=== PATIENT | female | born 1975 | race Caucasian/White ===

== ENCOUNTER 2021-07-09 16:10 | Outpatient (RCR) | payer BC, SELFPAY | END 2021-10-07 23:59 | disposition home or self-care (01) | LOC: CHSPT 16:10 | DX: M54.2 Cervicalgia (principal); M54.50 Low back pain, unspecified | CPT/HCPCS: 99199 ==

== ENCOUNTER 2021-09-29 14:07 | Outpatient (CLI) | payer BC, SELFPAY ==
[2021-09-29 15:25] LABS: SARS-CoV-2 RNA PCR Positive (Negative)
== END 2021-09-29 14:08 | disposition home or self-care (01) ==
LOC: CHSLAB 14:10
PROVIDERS: PCP Physician Assistant; Visit Provider Physician Assistant
DX: U07.1 COVID-19 (principal); B34.9 Viral infection, unspecified
CPT/HCPCS: C9803; U0003; U0005

== ENCOUNTER 2021-12-31 13:45 | Outpatient (CLI) | payer BC, SELFPAY ==
--- NOTE | ~2021-12-31 | XR_ITS ---
EXAMINATION: XR tibia fibula RT 2V DATE: 12/31/2021 14:13 INDICATION: Right knee pain. TECHNIQUE: 2 views of right tibia and fibula on 4 radiographs were obtained. COMPARISON: None. FINDINGS: There is a patellofemoral compartment arthroplasty in near-anatomic alignment. No fracture. There is mild osteoarthritis of medial and lateral compartments of the knee. There is mild osteoarth ritis of talonavicular joint. IMPRESSION: 1. Patellofemoral compartment arthroplasty in near-anatomic alignment. 2. Mild polyarticular osteoarthritis. Reviewed, dictated and finalized at location A.
--- NOTE | ~2021-12-31 | XR_ITS ---
EXAMINATION: XR knee RT 3V DATE: 12/31/2021 14:12 INDICATION: Right knee pain. TECHNIQUE: 3 views of right knee were obtained. COMPARISON: None. FINDINGS: There is a patellofemoral compartment arthroplasty in near-anatomic alignment. No periprost hetic lucency to suggest loosening or infection. No fracture. There is mild osteoarthritis of medial and lateral compartments characterized by marginal osteophytes. No joint space narrowing. There is a small knee joint effusion. IMPRESSION: 1. Patellofemoral compartment arthroplasty in near-anatomic alignment. 2. Mild right knee osteoarthritis. 3. Small right knee joint effusion. Reviewed, dictated and finalized at location A.
== END 2021-12-31 13:46 | disposition home or self-care (01) ==
LOC: CHSIMG 13:48
PROVIDERS: PCP Physician Assistant; Visit Provider Physician Assistant
DX: M25.561 Pain in right knee (principal)
CPT/HCPCS: 73562; 73590

== ENCOUNTER 2022-12-30 06:04 | Day surgery (SDC) | payer OTHER, SELFPAY ==
[2022-10-14 09:39] VITALS: BMI 31.6
[2022-12-15 08:45] VITALS: BMI 32.5
[2022-12-30] VITALS (9 sets, daily range): BP systolic 128–157; BP diastolic 92–103; PULSE 79–100; RESP 14–20; TEMP 36.3–36.5; O2SAT 93–100
--- NOTE | 2022-12-30 06:35 | P.PNAN_ITS ---
Anes - Initial Pre Proc Eval Procedure: Operation Date: 12/30/22 07:30 Proposed Procedures p Bilateral Breast Reduction Mammoplasty - Norbert Herzog MD Date/Time: 12/30/22 06:35 Surgeon: Norbert Herzog MD Pre Op Diagnosis: Macromastia Patient Data Age: 47 Gender: F Height: 1.78 m Weight: 103 kg Allergies Allergy/AdvReac Type Severity Reaction Status Date / Time ibuprofen Allergy Muscle Verified 12/30/22 06:20 Spasms iron Allergy Hives Verified 12/30/22 06:20 Penicillins Allergy Hives Verified 12/30/22 06:20 shellfish derived Allergy Anaphylaxis Verified 12/30/22 06:20 Home Medications Medication Instructions Recorded Confirmed Type alprazolam 0.25 mg tablet 0.25 mg PO HS 12/15/22 12/30/22 History bupropion HCl 150 mg tablet,12 hr 150 mg PO DAILY 12/15/22 12/30/22 History sustained-release estradiol 0.05 mg/24 hr semiweekly 1 patch topical DIRECTED 12/15/22 12/30/22 History transdermal patch phenazopyridine 200 mg tablet 200 mg PO DAILY 12/15/22 12/30/22 History Patient hx anesthesia problems: none Family hx anesthesia problems: none Results Review: All pre-operative results and documents have been reviewed as part of the pre- operative evaluation. [facility], [facility] Past Medical History Medical History (Updated 12/30/22 @ 06:44 by Hipolito Osuna DO) Anxiety Asthma Social History Social History Tobacco type: e-cigarettes/vaping Second hand tobacco smoke exposure: No Alcohol intake: current Alcohol use details: socially Substance use: never Substance use type: does not use Living arrangements: with family Spiritual care concerns: No Anes - Eval Final PreProcedure Day of Procedure 12/30/22 06:35 Patient weight: obese Heart: regular rate and rhythm Lungs: clear to auscultation Airway: Mallampati scale class II Neurological: alert and oriented Last oral intake: >/= 8 hours ASA classification: II Emergent: no Anesthetic plan: proceed Anesthesia type and monitoring: general LMA and standard monitoring Results Review: All pre-operative results and documents have been reviewed as part of the pre- operative evaluation. Informed Consent: The patient's anesthetic plan and its attendant risks and benefits were discussed with the patient/family/POA. Questions were solicited and answers provided to the satisfaction of the patient/family/POA.
--- NOTE | 2022-12-30 06:42 | P.OP_ITS ---
Procedure Note - Detailed Date of Procedure 12/30/22 Pre-op Diagnosis Macromastia Post-op Diagnosis Same Procedure Performed Bilateral reduction mammaplasty Surgeon Norbert Herzog MD Anesthesia General Findings Inverted T Superior Medial Pedicle Tissue removed: Right - 950 grams Left - 886 grams Lipoaspiate 200 cc Description of Procedure She is here today for bilateral breast reduction. Previously and again today the risks, benefits, alternatives were discussed in extensive detail. I wanted her to be very realistic about the risks involved as well as expectations. We discussed aftercare and what to monitor for. She understands we can never guar antee final breast size and there will always be asymmetry. I was very upfront and honest about the risks of sensation change and even nipple loss (). Made sure answered all of her questions to her satisfaction today and consent was obtained. She was marked in the preoperative holding area with their verification. The patient was taken to the operating room placed supine on the operating table. Anesthesia was provided by anesthesiology. She was prepped and draped in a standard sterile fashion. A surgical time-out was taken. Stab incisions were made and I tumessed with a tumescent solution. I marked out the nipple-areolar complex at 42 mm. I then de-epithelialized the pedicle. The pedicle was well left well more than 2 cm in thickness. I then removed the inferior portion of the breast as well as the central keel to get shape based on preoperative planning. At this point copiously irrigated with saline solution and verified a strict hemostasis. I reapproximated the pillars using a 2-0 PDS. I tailor tacked the breast into place with dashawn. She was placed in a sitting position. For symmetry suction lipectomy was completed bilateral lateral breast using a 4mm basket cannula based on S.A.F.E. technique based on pre-opeartive planning, intraoperative observation, and rolling pinch. I verified the nipple-areolar complex position based on preoperative markings, i ntraoperative measurements, and observation which were in full agreement. This nipple-areolar complex was marked at 42 mm in size. I then placed supine and de-epithelialized this. Nipple-areolar complex was inset with 3-0 Monocryl. I closed IMF deep with 1 strattafix. I closed the vertical incision with 3-0 Monocryl in the IMF with 3-0 stratafix. Then everything was closed using a running subcuticular 4-0 Monocryl followed by Steri-Strips. A dressing was placed followed by surgical bra. Patient was awoke and taken to PACU without difficulty. All instrument sponge counts were correct at the end of the case. Estimated Blood Loss 75 Drains No Packing No Pathology Yes Complications No immediate complications Condition Stable Disposition PACU
--- NOTE | 2022-12-30 06:42 | WPDHPUPDATE1 ---
History and Physical Update Update Date/Time: 12/30/22 06:42 History and Physical has been reviewed, including an updated exam of the patient. There are NO changes in the patient's condition. Risks, benefits, and alternatives have been discussed and questions answered. Patient agrees to proceed with procedure.
[2022-12-30] MEDS: LACTATED RINGERS 1,000 ML 30 ML IV CONT ×2 (07:05→10:16)
[2022-12-30] MEDS: ceFAZolin SODIUM 2 GM/20 ML SW SYRINGE IV PUSH (07:28)
[2022-12-30] MEDS: TRANEXAMIC ACID 1,000 MG/10 ML AMPUL 1000 MG IV PUSH (07:30)
--- NOTE | 2022-12-30 09:59 | SUR.OPER ---
950g right breast tissue removed, 886g left breast tissue removed
--- NOTE | 2022-12-30 10:25 | SUR.PHASEI ---
1016; PT INTO PACU PER STRETCHER. PT DRY HEAVING UPON ARRIVAL. DR WALKER ORDERED SCOPE PATCH
[2022-12-30] MEDS: SCOPOLAMINE 1.5 MG PATCH TRANSDERM (10:27)
[2022-12-30] MEDS: fentaNYL CITRATE INJ (*CRX) 100 MCG/2 ML VIAL 25 MCG IV PUSH ×4 (10:31→10:53)
[2022-12-30] MEDS: ONDANSETRON INJ 4 MG/2 ML VIAL IV PUSH (10:37)
--- NOTE | 2022-12-30 10:54 | SUR.PHASEI ---
PT STATES RELIEF OF NAUSEA. STATES PAIN IMPROVING NOW. STATES BREASTS FEEL TIGHT. UPPER BREAST AREA SOFT/SYMMETRICAL BILAT. RESP EVEN UNLABORED. HOB AT 30 DEGREES
--- NOTE | 2022-12-30 10:56 | SUR.PHASEI ---
PT AWAKE, RESTING QUIETLY. STATES READY TO MOVE TO [facility].
[2022-12-30] MEDS: oxyCODONE HCL (*CRX) 5 MG TAB IR PO (11:35)
--- NOTE | 2022-12-30 15:32 | WPDANESPN ---
Anes - Prog Note Post-Op Date/Time: 12/30/22 15:32 Cardiovascular status: normal Respiratory status: normal Airway patency: baseline Mental status: baseline Post-Op hydration status: normal Vital Signs: Last Vital Signs Temp 36.5 C 12/30/22 10:16 Pulse 81 12/30/22 12:00 Resp 15 12/30/22 12:00 BP 128/93 H 12/30/22 12:00 Pulse Ox 96 12/30/22 12:00 O2 Del Method Room Air 12/30/22 12:00 O2 Flow Rate 6 12/30/22 10:30 Pain Score (VAS): 0 I/O: Intake & Output 12/29/22 12/30/22 12/30/22 23:59 07:59 15:59 Intake Total 150 Balance 150 Post-procedural complaints: none Patient Feedback: Patient satisfied with anesthetic care.
== END 2022-12-30 12:18 | disposition home or self-care (01) ==
PROVIDERS: PCP Physician Assistant; Visit Provider Surgery Plastic and Reconstructive Surgery
PROC: 0HBV0ZZ Excision of Bilateral Breast, Open Approach (ICD-10-PCS; CPT 19318; principal; 2022-12-30 07:30)
DX: N62 Hypertrophy of breast (principal)
CPT/HCPCS: 19318; 19328

== ENCOUNTER 2022-12-30 08:00 | Outpatient (NON) | payer OTHER, SELFPAY | END 2022-12-30 08:01 | disposition home or self-care (01) | LOC: ANHLAB 01-02 07:49 | PROVIDERS: PCP Physician Assistant; Visit Provider Surgery Plastic and Reconstructive Surgery | DX: N62 Hypertrophy of breast (principal) | CPT/HCPCS: 88305 ==